=== PATIENT | female | born 1990 | race Caucasian/White ===

== ENCOUNTER → 2021-05-01 07:59 | Outpatient (CLI) | payer OTHER, SELFPAY ==
[2020-07-30 16:01] VITALS: BMI 26.6
[2021-05-01 12:43] LABS: Thyroid Stim Hormone (TSH) 1.05 uIU/mL (0.358-3.74)
== END ==
PROVIDERS: Referring Provider Internal Medicine Endocrinology, Diabetes & Metabolism; Visit Provider Internal Medicine Endocrinology, Diabetes & Metabolism
DX: E06.3 Autoimmune thyroiditis (principal); E03.8 Other specified hypothyroidism
CPT/HCPCS: 36415; 84439; 84443

== ENCOUNTER → 2021-08-12 07:50 | Outpatient (CLI) | payer OTHER, SELFPAY ==
--- NOTE | 2021-08-12 07:55 | US_ITS ---
STUDY: THYROID ULTRASOUND REASON FOR EXAM: Female, 31 years old. GOITER TECHNIQUE: Ultrasound evaluation of the thyroid was performed with real-time and static vernon-scale imaging. COMPARISON: None. FINDINGS: RIGHT LOBE: The right lobe of the thyroid gland measures 3.3 cm x 1 cm x 1.2 cm. There is a heterogeneous echotexture. There are no demonstrated solid, cystic or complex lesions. LEFT LOBE: The left lobe of the thyroid gland measures 3 cm x 0.8 cm x 1.2 cm. There is a heterogeneous echotexture. There are no demonstrated solid, cystic or complex lesions. ISTHMUS: The isthmus measures 2 mm. The regional lymph nodes are normal. US/Thyroid IMPRESSION: Heterogeneous appearance of the right and left lobes of the thyroid. No focal nodule is seen. Electronically Signed: Adal Chin MD at 9:44 EST , Service support ,
== END ==
PROVIDERS: Referring Provider Internal Medicine Endocrinology, Diabetes & Metabolism; Visit Provider Internal Medicine Endocrinology, Diabetes & Metabolism
DX: E06.3 Autoimmune thyroiditis (principal); E04.9 Nontoxic goiter, unspecified
CPT/HCPCS: 76536

== ENCOUNTER 2022-01-15 08:01 | Outpatient (CLI) | payer OTHER, SELFPAY ==
[2022-01-15 12:59] LABS: ALB/GLOB Ratio 1.1 RATIO (0.9-2.4); AST(SGOT) 19 U/L (15-37); Alanine Aminotransfer ALT/SGPT 47 U/L (13-56); Albumin, Serum 3.7 g/dL (3.2-5.0); Alkaline Phosphatase 42 U/L (45-117); Anion Gap 4 (5-15); BUN 8 mg/dL (7-18); BUN/Creat Ratio 12.3 RATIO (10-20); Calcium,Total 8.6 mg/dL (8.5-10.1); Chloride 108 mmol/L (98-107); Creatinine, Serum 0.65 mg/dL (0.55-1.02); EST Glomerular Filtration Rate 112 mL/min (>60); Est Glom Filt Rate - Afr Amer 135 mL/min (>60); Ferritin 42 ng/mL (8-252); Globulin 3.4 g/dL (2.2-4.2); Glucose 97 mg/dL (74-106); Protein, Total 7.1 g/dL (6.4-8.2); Sodium Level 140 mmol/L (136-145); T4 Free Direct 0.97 ng/dL (0.76-1.46); Thyroid Stim Hormone (TSH) 1.34 uIU/mL (0.358-3.74)
[2022-01-15 13:01] LABS: Vitamin B12 573 pg/mL (211-911); Vitamin D,25 Hydroxy 34.5 ng/mL
[2022-01-16 16:10] LABS: Endomysial Antibody IgA Negative (Negative)
[2022-01-16 20:03] LABS: Immunoglobulin A 186 mg/dL (87-352); t-Transglutaminase IgA <2 U/mL (0-3)
== END 2022-01-15 23:59 | disposition home or self-care (01) ==
LOC: BIMLAB 08:06
PROVIDERS: Referring Provider Internal Medicine Endocrinology, Diabetes & Metabolism; Visit Provider Internal Medicine Endocrinology, Diabetes & Metabolism
DX: E03.8 Other specified hypothyroidism (principal); E06.3 Autoimmune thyroiditis; K90.41 Non-celiac gluten sensitivity; L50.9 Urticaria, unspecified; E55.9 Vitamin D deficiency, unspecified
CPT/HCPCS: 36415; 80053; 82306; 82607; 82728; 82784; 83516; 84439; 84443; 86255

== ENCOUNTER → 2023-03-13 | Outpatient (CLI) | payer OTHER, SELFPAY ==
[2023-03-13 13:31] LABS: T4 Free Direct 1.06 ng/dL (0.76-1.46); Thyroid Stim Hormone (TSH) 0.72 uIU/mL (0.358-3.74)
[2023-03-14 04:07] LABS: Thyroid Peroxidase AB 168 IU/mL (0-34)
== END | disposition home or self-care (01) ==
LOC: BIMLAB 08:33
PROVIDERS: Visit Provider Internal Medicine Endocrinology, Diabetes & Metabolism
DX: E03.8 Other specified hypothyroidism (principal); E06.3 Autoimmune thyroiditis
CPT/HCPCS: 36415; 84439; 84443; 86376